=== PATIENT | female | born 1980 | race Caucasian/White ===

== ENCOUNTER 2021-07-13 17:21 | Outpatient (CLI) | payer OTHER ==
--- NOTE | 2021-07-14 14:11 | Ultrasound Report ---
PROCEDURE: Head or Neck Soft Tissue INDICATIONS: THYROID NODULE TECHNIQUE: Real-time scanning was performed of the thyroid gland, with image documentation. COMPARISON: Report from ultrasound obtained 05/05/2020 and images unavailable. FINDINGS: Right: Thyroid lobe measures 4.7 x 1.4 x 1 point cm, and is homogeneous in echotexture. Left: Thyroid lobe measures 5.0 x 1.4 x 1.7 cm, and is homogenous in echotexture. Isthmus: 4 mm thick. Nodule number: One Location: Right isthmus Size: 9 mm cm. Composition: Solid Echogenicity: Hypoechoic Shape: wider than tall. Margins: Smooth Echogenic foci: None Total points: 4 ACR TI-RADS category: TI-RADS 4 IMPRESSION: Moderately suspicious nodule in the right isthmus of the thyroid gland without significant change by report from prior study obtained 05/05/2020. The nodule size and imaging characteristics continued surv eillance in 1 year and 3 years is recommended to meet surveillance criteria outlined below. ACR TI-RADS definitions and recommendations: TI-RADS 1 (benign): 0 points. FNA not needed. TI-RADS 2 (not suspicious): 2 points. FNA not needed. TI-RADS 3 (mildly suspicious): 3 points. ? FNA if 2.5 cm or larger, follow up if 1.5 cm or larger (at 1, 3, and 5 years). TI-RADS 4 (moderately suspicious): 4-6 points. ? FNA if 1.5 cm or larger, follow up if 1 cm or larger (at 1, 2, 3, and 5 years). TI-RADS 5 (highly suspicious): 7 points or more. ? FNA if 1 cm or larger, follow up if 0.5 cm or larger (every year for 5 years). Reviewed by: Peggy Ulloa MD, PhD on 07/14/2021 2:10 PM PDT Approved by: Peggy Ulloa MD, PhD on 07/14/2021 2:10 PM PDT Station ID: [id number]
== END 2021-07-13 17:22 | disposition home or self-care (01) ==
LOC: DI 17:21
PROVIDERS: ATTEND Registered Nurse
DX: E04.1 Nontoxic single thyroid nodule (principal)

== ENCOUNTER 2023-03-30 12:50 | Outpatient (CLI) | payer OTHER ==
--- NOTE | 2023-04-03 08:42 | Mammography Report ---
BILATERAL DIGITAL SCREENING MAMMOGRAM 3D/2D: 03/30/2023 CLINICAL: Routine screening. Baseline exam. No prior exams were available for comparison. Both breasts are heterogeneously dense, which may obscure small masses (category c / 51-75% glandular tissue). There is an oval mass in the right breast at 8 o'clock anterior depth. No other significant masses, calcifications, or other findings are seen in either breast. IMPRESSION: INCOMPLETE: NEEDS ADDITIONAL IMAGING EVALUATION The oval mass in the right breast is indeterminate. Additional views with possible ultrasound are re commended. Based on the Tyrer Cuzick model (a risk assessment model) the patients lifetime risk is 15.1% and he r 10 year risk is 2.1%. According to the ACR, ACS, and NCCN guidelines, an annual breast MRI exam shorty ng with mammogram is recommended if the patients lifetime risk is 20% or greater. This exam was interpreted at Station ID: [id number]. NOTE: For mammograms, a report in lay terms will be sent to the patient. Approximately 15% of breast malignancies will not be visualized mammographically. In the management of a palpable breast mass, a negative mammogram must not discourage biopsy of a clinically suspicious lesion. Electronically Signed By: Jeff Ward M.D. lc/:03/30/2023 14:02:22 ACR BI-RADS Category 0: Incomplete 3340F PARENCHYMAL PATTERN: (D) - The breast(s) demonstrate(s) heterogeneously dense fibroglandular parenchy ma. BI-RADS CATEGORY: (0) - 0 Mammo and [place] [id number] Immediate follow-up LATERALITY: (B)
== END 2023-03-30 12:51 | disposition home or self-care (01) ==
LOC: DI 12:50
DX: Z12.31 Encounter for screening mammogram for malignant neoplasm of breast (principal); N63.13 Unspecified lump in the right breast, lower outer quadrant

== ENCOUNTER 2023-04-25 08:09 | Outpatient (CLI) | payer OTHER ==
--- NOTE | 2023-04-25 10:36 | Mammography Report ---
UNILATERAL RIGHT DIGITAL DIAGNOSTIC MAMMOGRAM 3D/2D: 04/25/2023 CLINICAL: Patient returns for additional imaging over a suspected mass in the right breast. Comparison is made to exam dated: 03/30/2023 mammogram - [facility]. The right breast is heterogeneously dense, which may obscure small masses (category c / 51-75% glandu lar tissue). There is an oval mass in the right breast at 9 o'clock anterior depth. No other significant masses or calcifications are seen in the breast. IMPRESSION: INCOMPLETE: NEEDS ADDITIONAL IMAGING EVALUATION The oval mass in the right breast resembles a cyst and is indeterminate. A targeted ultrasound is recommended and will immediately follow. Based on the Tyrer Cuzick model (a risk assessment model) the patients lifetime risk is 15.6% and he r 10 year risk is 2.2%. According to the ACR, ACS, and NCCN guidelines, an annual breast MRI exam shorty ng with mammogram is recommended if the patients lifetime risk is 20% or greater. This exam was interpreted at Station ID: [id number]. NOTE: For mammograms, a report in lay terms will be sent to the patient. Approximately 15% of breast malignancies will not be visualized mammographically. In the management of a palpable breast mass, a negative mammogram must not discourage biopsy of a clinically suspicious lesion. Electronically Signed By: Pasquale Linton M.D. slc/:04/25/2023 09:01:21 ACR BI-RADS Category 0: Incomplete 3340F PARENCHYMAL PATTERN: (D) - The breast(s) demonstrate(s) heterogeneously dense fibroglandular jose manuel caldwell. BI-RADS CATEGORY: (0) - 0 Ultrasound [id number] Immediate follow-up LATERALITY: (B)
--- NOTE | 2023-04-25 10:36 | Ultrasound Report ---
LIMITED ULTRASOUND OF RIGHT BREAST: 04/25/2023 CLINICAL: Patient returns for additional imaging over a suspected mass in the right breast. Comparison is made to exams dated: 04/25/2023 mammogram and 03/30/2023 mammogram - [facility]. Color flow and real-time ultrasound of the right breast 8-9 o'clock region were performed. Juan scal e images of the real-time examination were reviewed. There is a benign 0.6 cm x 0.6 cm x 0.3 cm oval simple cyst in the right breast at 9 o'clock anterior depth 3 cm from the nipple. This oval simple cyst is anechoic. This correlates with mammography fi ndings. Color flow imaging demonstrates that there is no vascularity present. There also is a benign 0.4 cm normal lymph node in the right breast at 8 o'clock middle depth 4 cm fr om the nipple. This normal lymph node displays fatty hilum. This correlates as an incidental findin g. Color flow imaging demonstrates that there is no vascularity present. IMPRESSION: BENIGN There is no sonographic evidence of malignancy. The 0.6 cm simple cyst in the right breast at 9 o'clock anterior depth is benign. The 0.4 cm normal lymph node in the right breast at 8 o'clock middle depth is benign. A 1 year screening mammogram is recommended. Exam findings were conveyed to the patient. This exam was interpreted at Station ID: [id number]. Electronically Signed By: Pasquale Linton M.D. slc/:04/25/2023 09:06:00 Ultrasound BI-RADS: 2 Benign BI-RADS CATEGORY: (2) - 2 Mammogram [id number] 1 year screening LATERALITY: (B)
== END 2023-04-25 08:10 | disposition home or self-care (01) ==
LOC: DI 08:09
PROVIDERS: ATTEND Internal Medicine
DX: N60.01 Solitary cyst of right breast (principal)

== ENCOUNTER 2024-01-17 14:25 | Outpatient (CLI) | payer OTHER ==
--- NOTE | 2024-01-17 15:57 | XRAY Report ---
PROCEDURE: Chest 2V INDICATIONS: COUGH TECHNIQUE: 2 views of the chest were acquired. COMPARISON: None. FINDINGS: Surgical changes and devices: None. Lungs and pleura: No pleural effusions or pneumothorax. Lungs are clear. Mediastinum: Mediastinal contours appear normal. Heart size is normal. Bones and chest wall: No suspicious bony lesions. Overlying soft tissues appear unremarkable. IMPRESSION: Chest without acute cardiopulmonary abnormalities or focal airspace disease. Reviewed by: Moody Rodriguez MD on 01/17/2024 2:56 PM MACIE Approved by: Moody Rodriguez MD on 01/17/2024 2:56 PM [place] Station ID: [id number]
== END 2024-01-17 14:26 | disposition home or self-care (01) ==
LOC: DI 14:25
PROVIDERS: ATTEND Internal Medicine
DX: R05.1 Acute cough (principal); J45.909 Unspecified asthma, uncomplicated

== ENCOUNTER 2024-02-14 09:13 | Outpatient (CLI) | payer OTHER ==
[2024-02-14] MEDS: ALBUTEROL 1 PUFF INH STA (10:32)
== END 2024-02-14 09:14 | disposition home or self-care (01) ==
LOC: RT 09:13
PROVIDERS: ATTEND Internal Medicine
DX: R05.1 Acute cough (principal); J45.909 Unspecified asthma, uncomplicated
CPT/HCPCS: 94060

== ENCOUNTER 2024-03-10 08:00 | Outpatient (CLI) | payer OTHER ==
[2024-03-10 17:13] LABS: BILIRUBIN,URINE NEGATIVE (NEGATIVE); GLUCOSE, URINE (UA) NEGATIVE (NEGATIVE); KETONES,URINE (UA) NEGATIVE (NEGATIVE); LEUKOCYTE ESTERASE, URINE NEGATIVE (NEGATIVE); NITRITE,URINE NEGATIVE (NEGATIVE); OCCULT BLOOD,URINE NEGATIVE (NEGATIVE); PROTEIN,URINE NEGATIVE (NEGATIVE); UROBILINOGEN,URINE 0.2 (NORMAL) E.U./dL (NORMAL)
[2024-03-10 17:45] LABS: BACTERIA,URINE Rare /HPF (None Seen); CLARITY,URINE CLEAR (CLEAR); RBC,URINE None Seen /HPF (0-5); SQUAMOUS EPITHELIAL CELL,UR FEW Squamous (<= Few); WBC,URINE 0-3 /HPF (0-5)
== END 2024-03-10 23:59 | disposition home or self-care (01) ==
LOC: LAB.WC 08:00
PROVIDERS: ATTEND Nurse Practitioner
DX: N39.3 Stress incontinence (female) (male) (principal)
CPT/HCPCS: 81001; 87086

== ENCOUNTER 2024-07-17 10:52 | Outpatient (CLI) | payer BC ==
--- NOTE | 2024-07-17 15:21 | Ultrasound Report ---
PROCEDURE: Soft Tissue Head or Neck INDICATIONS: THYROID NODULE TECHNIQUE: Real-time scanning was performed of the thyroid gland, with image documentation. COMPARISON: 07/13/2021 FINDINGS: Right: Thyroid lobe measures 4.5 x 1.3 x 1.5 cm. Left: Thyroid lobe measures 4.4 x 1.3 x 1.7 cm Isthmus: 0.33 cm thick. Echotexture: Homogeneous. Nodule number: One Location: Medial right thyroid lobe Size: 0.8 x 0.7 x 0.6 cm, previously 0.9 x 0.7 x 0.7 cm. Composition: Solid. Echogenicity: Hypoechoic (2 points). Shape: wider than tall (0 points). Margins: Smooth (0 points). Echogenic foci: None (0 points). Total points: 4 ACR TI-RADS category: TI-RADS 4: Moderately suspicious. IMPRESSION: Stable moderately suspicious subcentimeter nodule in right thyroid lobe as described abo ve. Finding likely represent benign process. No further follow-up is indicated at this time. ACR TI-RADS definitions and recommendations: TI-RADS 1 (benign): 0 points. FNA not needed. TI-RADS 2 (not suspicious): 2 points. FNA not needed. TI-RADS 3 (mildly suspicious): 3 points. "FNA if 2.5 cm or larger, follow up if 1.5 cm or larger (at 1, 3, and 5 years). TI-RADS 4 (moderately suspicious): 4-6 points. "FNA if 1.5 cm or larger, follow up if 1 cm or larger (at 1, 2, 3, and 5 years). TI-RADS 5 (highly suspicious): 7 points or more. "FNA if 1 cm or larger, follow up if 0.5 cm or larger (every year for 5 years). Reviewed by: Bhupendra Bal MD on 07/17/2024 3:19 PM PDT Approved by: Bhupendra Bal MD on 07/17/2024 3:19 PM PDT Station ID: [id number]
== END 2024-07-17 10:53 | disposition home or self-care (01) ==
LOC: DI 10:52
DX: E04.1 Nontoxic single thyroid nodule (principal)